=== PATIENT | male | born 2005 | race Caucasian/White ===

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

== ENCOUNTER 2024-11-13 18:59 | Emergency (ER) | payer OTHER ==
[2024-11-13] MEDS: Diphtheria,Pertussis(Acell),Tetanus Vaccine 0.5 ML Syringe IM ONE (19:16)
== END 2024-11-13 21:10 ==
LOC: JD.ED 18:59
DX: S02.2XXA Fracture of nasal bones, initial encounter for closed fracture (principal); S00.83XA Contusion of other part of head, initial encounter; F17.210 Nicotine dependence, cigarettes, uncomplicated; S00.01XA Abrasion of scalp, initial encounter; N32.9 Bladder disorder, unspecified; Z88.0 Allergy status to penicillin; V89.2XXA Person injured in unspecified motor-vehicle accident, traffic, initial encounter
CPT/HCPCS: 70450; 70450-26; 70486; 70486-26; 90471; 99283; 99284-25